=== PATIENT | female | born 1990 | race Caucasian/White ===

== ENCOUNTER 2023-10-20 08:00 | Outpatient (CLI) | payer OTHER | END 2023-10-20 23:59 | disposition home or self-care (01) | LOC: LAB.N 08:00 | PROVIDERS: ATTEND Physician Assistant Medical | DX: O23.40 Unspecified infection of urinary tract in pregnancy, unspecified trimester (principal) | CPT/HCPCS: 87086 ==

== ENCOUNTER 2023-11-21 16:23 | Outpatient (CLI) | payer OTHER ==
[2023-11-21 16:46] LABS: HGB - HEMOGLOBIN 12.4 g/dL (12.0-16.0); MEAN CORPUSCULAR HEMOGLOBIN 29.7 pg (27.0-31.0); MEAN CORPUSCULAR HGB CONC 33.5 g/dL (32.0-36.0); MEAN CORPUSCULAR VOLUME 88.7 fL (81.0-99.0); MEAN PLATELET VOLUME 10.5 fL (7.9-10.8); RED BLOOD COUNT 4.17 10^6/uL (4.20-5.40); RED CELL DISTRIBUTION WIDTH 13.3 % (12.0-15.0); WHITE BLOOD COUNT 10.8 x10^3/uL (4.8-10.8)
[2023-11-21 17:03] LABS: ALBUMIN 3.7 g/dL (3.2-5.5); ALBUMIN/GLOBULIN RATIO 1.2 (1.0-2.2); BILIRUBIN,TOTAL 0.3 mg/dL (0.2-1.0); CALCIUM 9.8 mg/dL (8.5-10.3); CREATININE 0.7 mg/dL (0.6-1.3); POTASSIUM 4.4 mmol/L (3.5-4.5); TOTAL PROTEIN 6.8 g/dL (6.4-8.9)
[2023-11-21 17:19] LABS: THYROID STIMULATING HORMONE 0.96 uIU/mL (0.34-5.60)
[2023-11-21 17:25] LABS: FERRITIN 4.9 ng/mL (11.0-306.8)
[2023-11-21 19:43] LABS: ESTIMATED AVERAGE GLUCOSE 108 mg/dL (70-100); HEMOGLOBIN A1c% 5.4 % (4.27-6.07)
== END 2023-11-21 16:24 | disposition home or self-care (01) ==
LOC: LAB 16:23
PROVIDERS: ATTEND Obstetrics & Gynecology
DX: O09.93 Supervision of high risk pregnancy, unspecified, third trimester (principal); O99.283 Endocrine, nutritional and metabolic diseases complicating pregnancy, third trimester
CPT/HCPCS: 36415; 80053; 82728; 83036; 84439; 84443; 85027

== ENCOUNTER 2023-11-21 16:28 | Outpatient (CLI) | payer OTHER ==
--- NOTE | 2023-11-21 20:56 | PROCEDURE REPORT ---
- HPI Diagnosis/Indication for NST: Decreased movement Current EDU 01/07/24 Gestation 33 Weeks and 2 Days 5 Para 1 Vital Signs Temperature 97.9 F 11/21/23 17:30 Temperature 97.9 F 11/21/23 17:30 Heart Rate Respiratory Rate Blood Pressure O2 Saturation If not protocol: Oxygen Flow, liters/minute - NST Procedure NST Procedure Start Date 11/21/23 Start Time 16:47 Stop Time 17:13 Vibroacoustic Stimulation Used No Patient States Movement decreased - Results and Plan Findings/Impression: Reactive for of 32 weeks gestation or more. NST tracing contains at least two heart rate accelerations that are at least 15 beats per minute above the baseline rate and lasting at least 15 seconds from onset to return to baseline within a twenty minute period. did feel movement during NST. very reassured. Plan: discharge home. care as scheduled.
== END 2023-11-21 17:25 | disposition home or self-care (01) ==
LOC: WFO 16:28 → FBP 16:30 → WFO 17:25
PROVIDERS: ATTEND Obstetrics & Gynecology
DX: O36.8130 Decreased fetal movements, third trimester, not applicable or unspecified (principal); O09.93 Supervision of high risk pregnancy, unspecified, third trimester; O99.283 Endocrine, nutritional and metabolic diseases complicating pregnancy, third trimester; E27.1 Primary adrenocortical insufficiency; Z3A.33 33 weeks gestation of pregnancy
CPT/HCPCS: 36415; 59025; 80053; 82728; 83036; 84439; 84443; 85027

== ENCOUNTER 2023-11-27 14:53 | Outpatient (CLI) | payer OTHER ==
[2023-11-27 16:08] LABS: THYROID STIMULATING HORMONE 0.93 uIU/mL (0.34-5.60)
== END 2023-11-27 14:54 | disposition home or self-care (01) ==
LOC: LAB 14:53
PROVIDERS: ATTEND Internal Medicine
DX: E03.9 Hypothyroidism, unspecified (principal)
CPT/HCPCS: 36415; 84439; 84443

== ENCOUNTER 2023-12-10 16:18 | Outpatient (CLI) | payer OTHER ==
--- NOTE | 2023-12-11 12:56 | Ultrasound Report ---
PROCEDURE: OB Follow up INDICATIONS: SUPERVISION OF HIGH RISK OUTSIDE/PRIOR DATING DATA: Last menstrual period (LMP): 04/02/2023. LMP-based estimated date of delivery (MACRINA): 01/07/2024. First dating scan (date and location): Not available. Estimated date of delivery (MACRINA) from first dating scan: Not available. The below data below was generated using the provider stated MACRINA of 01/07/2024 TECHNIQUE: Real-time scanning was performed of the fetus, with image documentation and biometric measurements. Endovaginal scanning: Not performed. COMPARISON: None. FINDINGS: General: A single living intrauterine gestation is present. Presentation: Breech Placenta: Placental position is posterior, without previa. Amniotic fluid index: 22.1 cm, within normal limits for gestational age. Deepest pocket is 7.4 cm. heart rate: 147 beats per minute. Maternal cervical canal: Not seen ; normal length is 2.5 cm or more. biometrics: Biparietal diameter: 8.9 cm, 36 weeks 0 days Head circumference: 34.6 cm, 40 weeks 0 days Abdominal circumference: 34.5 cm, 38 weeks 3 days Femur length: 7.3 cm, 37 weeks 2 days Estimated gestational age from clinical datin weeks 0 days Composite gestational age from present scan: 38 weeks 0 days Estimated weight and percentile: 3375 mg, 94th percentile Measurement variability in biometric dating: +/- 10 days from 12-20 weeks gestation, +/- 2 weeks from 20-30 weeks gestation, +/- 3 weeks at 30 weeks gestation or more. Other: Not applicable. IMPRESSION: Single live intrauterine is in breech presentation. Composite gestational age is 2 weeks ahead of the clinically assigned gestational age. Estimated weight at the 94th percentile. Reviewed by: Nini Dunaway MD on 12/11/2023 12:55 PM PDT Approved by: Nini Dunaway MD on 12/11/2023 12:55 PM PDT Station ID: [id number]
== END 2023-12-10 16:19 | disposition home or self-care (01) ==
LOC: DI 16:18
PROVIDERS: ATTEND Obstetrics & Gynecology
DX: O32.1XX0 Maternal care for breech presentation, not applicable or unspecified (principal); Z3A.38 38 weeks gestation of pregnancy

== ENCOUNTER 2023-12-10 16:18 | Outpatient (CLI) | payer OTHER | END 2023-12-10 16:19 | disposition home or self-care (01) | LOC: DI 16:18 | PROVIDERS: ATTEND Obstetrics & Gynecology | DX: O32.1XX0 Maternal care for breech presentation, not applicable or unspecified (principal); Z3A.38 38 weeks gestation of pregnancy ==

== ENCOUNTER 2023-12-12 08:00 | Outpatient (CLI) | payer OTHER | END 2023-12-12 23:59 | disposition home or self-care (01) | LOC: LAB.WC 08:00 | PROVIDERS: ATTEND Obstetrics & Gynecology | DX: Z36.85 Encounter for antenatal screening for Streptococcus B (principal) | CPT/HCPCS: 87797 ==

== ENCOUNTER 2023-12-19 08:00 | Outpatient (CLI) | payer OTHER ==
[2023-12-19 19:05] LABS: BILIRUBIN,URINE NEGATIVE (NEGATIVE); GLUCOSE, URINE (UA) NEGATIVE (NEGATIVE); KETONES,URINE (UA) NEGATIVE (NEGATIVE); LEUKOCYTE ESTERASE, URINE TRACE (NEGATIVE); NITRITE,URINE NEGATIVE (NEGATIVE); OCCULT BLOOD,URINE NEGATIVE (NEGATIVE); PROTEIN,URINE NEGATIVE (NEGATIVE); UROBILINOGEN,URINE 0.2 (NORMAL) E.U./dL (NORMAL)
[2023-12-19 19:12] LABS: CLARITY,URINE CLEAR (CLEAR)
[2023-12-19 19:25] LABS: RBC,URINE None Seen /HPF (0-5); SQUAMOUS EPITHELIAL CELL,UR FEW Squamous (<= Few); WBC,URINE 0-3 /HPF (0-5)
[2023-12-19 19:26] LABS: BACTERIA,URINE Rare /HPF (None Seen)
== END 2023-12-19 23:59 | disposition home or self-care (01) ==
LOC: LAB.WC 08:00
PROVIDERS: ATTEND Obstetrics & Gynecology
DX: R35.0 Frequency of micturition (principal)
CPT/HCPCS: 81001; 87086

== ENCOUNTER 2023-12-22 09:04 | Inpatient (IN) | payer OTHER ==
[2023-12-22] MEDS ORDERED: METHYLERGONOVINE 0.2 MG/ML VIAL IM PRN (09:31)
[2023-12-22] MEDS ORDERED: NIFEdipine 10 MG CAPSULE PO PRN ×3 (09:31→15:20)
[2023-12-22] MEDS ORDERED: OXYTOCIN 10 UNIT/ML VIAL IM PRN (09:31)
[2023-12-22] MEDS ORDERED: miSOPROStoL 200 MCG TABLET PR PRN (09:31)
[2023-12-22] MEDS ORDERED: TRANEXAMIC ACID IN NACL 1,000 MG/100 ML BAG IV PRN (09:31)
[2023-12-22] MEDS ORDERED: miSOPROStoL 200 MCG TABLET BC PRN (09:31)
[2023-12-22] MEDS ORDERED: hydrALAZINE INJ 20 MG/ML VIAL IVP PRN ×6 (09:31→15:20)
[2023-12-22] MEDS ORDERED: TERBUTALINE 1 MG/ML VIAL SUBQ PRN (09:31)
[2023-12-22] MEDS ORDERED: LABETALOL 20 MG/4 ML SYRINGE IVP PRN ×8 (09:31→15:20)
[2023-12-22] MEDS ORDERED: OXYTOCIN/SODIUM CHLORIDE 500 ML IV PRN ×3 (09:31→15:20)
[2023-12-22] MEDS ORDERED: SODIUM CHLORIDE FLUSH 0.9% 10 ML SYRINGE IVP PRN (09:31)
[2023-12-22] MEDS ORDERED: fentaNYL 100 MCG/2 ML VIAL IVP PRN ×2 (09:31→14:50)
[2023-12-22] MEDS ORDERED: lidocaine 1% 20 ML MDV ID PRN (09:31)
[2023-12-22] MEDS ORDERED: CARBOPROST TROMETHAMINE 250 MCG/ML VIAL IM PRN (09:31)
[2023-12-22] MEDS ORDERED: SODIUM CHLORIDE FLUSH 0.9% 10 ML SYRINGE IVP SCH (10:00)
[2023-12-22] MEDS ORDERED: LACTATED RINGERS 1,000 ML IV SCH ×2 (10:00→15:00)
[2023-12-22 10:18] LABS: BASOPHILS % (AUTO) 0.3 %; EOSINOPHILS # (AUTO) 0.1 10^3/uL (0.0-0.7); EOSINOPHILS % (AUTO) 0.6 %; HCT - HEMATOCRIT 35.2 % (37.0-47.0); HGB - HEMOGLOBIN 11.8 g/dL (12.0-16.0); LYMPHOCYTES # (AUTO) 2.9 10^3/uL (1.5-3.5); LYMPHOCYTES % (AUTO) 24.6 %; MEAN CORPUSCULAR HEMOGLOBIN 29.1 pg (27.0-31.0); MEAN CORPUSCULAR HGB CONC 33.5 g/dL (32.0-36.0); MEAN CORPUSCULAR VOLUME 86.7 fL (81.0-99.0); MEAN PLATELET VOLUME 10.5 fL (7.9-10.8); MONOCYTES # (AUTO) 0.8 10^3/uL (0.0-1.0); MONOCYTES % (AUTO) 6.8 %; NEUTROPHILS # (AUTO) 7.8 10^3/uL (1.5-6.6); NEUTROPHILS % (AUTO) 66.7 %; PLT - PLATELET COUNT 258 10^3/uL (130-450); RED BLOOD COUNT 4.06 10^6/uL (4.20-5.40); RED CELL DISTRIBUTION WIDTH 13.4 % (12.0-15.0); WHITE BLOOD COUNT 11.7 x10^3/uL (4.8-10.8)
[2023-12-22] MEDS ORDERED: ceFAZolin (2G) 2 GM in SODIUM CHLORIDE 0.9% MINIBAG 100 ML IV ONE (10:20)
[2023-12-22] MEDS ORDERED: ACETAMINOPHEN 500 MG TABLET PO ONE (10:20)
[2023-12-22] MEDS ORDERED: CITRIC ACID/SODIUM CITRATE 15 ML UDC PO ONE (10:20)
[2023-12-22] MEDS: LACTATED RINGERS 1,000 ML IV PRN (10:27)
[2023-12-22 10:31] LABS: ALBUMIN 3.6 g/dL (3.2-5.5); ALBUMIN/GLOBULIN RATIO 1.1 (1.0-2.2); BILIRUBIN,TOTAL 0.3 mg/dL (0.2-1.0); CALCIUM 9.2 mg/dL (8.5-10.3); CREATININE 0.6 mg/dL (0.6-1.3); POTASSIUM 3.9 mmol/L (3.5-4.5); TOTAL PROTEIN 6.8 g/dL (6.4-8.9)
[2023-12-22] MEDS: HYDROCORTISONE SUCCINATE 100 MG/2 ML VIAL IVP SCH ×2 (10:46→21:44)
--- NOTE | 2023-12-22 11:24 | HISTORY & PHYSICAL EXAMINATION ---
HPI - Admitted From Admitted from: OB - History Obtained From Records Reviewed: RN notes reviewed History obtained from: Patient Exam limitations: No limitations PMH/PSH - Past Medical History Cardiovascular: positive: Other (Adrenal hyperplasia, hypothyroid) Meds/Allgy - Allergies Allergies/Adverse Reactions: Allergies Allergy/AdvReac Type Severity Reaction Status Date / Time ondansetron [From Zofran] Allergy Unknown Verified 12/22/23 10:00 promethazine [From Phenergan] Allergy Unknown Verified 12/22/23 10:00 metoclopramide [From Reglan] AdvReac Anxiety Verified 12/22/23 10:00 Review of Systems - Constitutional Constitutional: reports: Fatigue - All Other Systems All Other Systems: reports: Other (+ movment. leaking fluid. no bleeding.) Exam - Vital Signs Reviewed Vital Signs: Yes Vital Signs: Vital Signs x48h Temp Pulse Resp BP 12/22/23 09:16 97.7 F 84 16 113/54 L - Physical Exam General Appearance: positive: No acute distress Respiratory: positive: No respiratory distress Cardiovascular: positive: Regular rate & rhythm Abdomen: positive: Non-tender (US done and baby is breech.) Comments/Other: NST done and baby is reactive. no decels. 2 acels per 20 min Results - Lab Results Fish Bones: 12/22/23 09:41 12/22/23 09:41 Other Lab Results: Lab Results x24hrs 12/22/23 12/22/23 12/22/23 Range/Units 09:41 09:41 09:41 WBC 11.7 H (4.8-10.8) x10^3/uL RBC 4.06 L (4.20-5.40) 10^6/uL Hgb 11.8 L (12.0-16.0) g/dL Hct 35.2 L (37.0-47.0) % MCV 86.7 (81.0-99.0) fL MCH 29.1 (27.0-31.0) pg MCHC 33.5 (32.0-36.0) g/dL RDW 13.4 (12.0-15.0) % Plt Count 258 (130-450) 10^3/uL MPV 10.5 (7.9-10.8) fL Neut # (Auto) 7.8 H (1.5-6.6) 10^3/uL Lymph # (Auto) 2.9 (1.5-3.5) 10^3/uL [place] # (Auto) 0.8 (0.0-1.0) 10^3/uL Eos # (Auto) 0.1 (0.0-0.7) 10^3/uL Baso # (Auto) 0.0 (0.0-0.1) 10^3/uL Absolute Nucleated RBC 0.00 x10^3/uL Nucleated RBC % 0.0 /100WBC Sodium 135 (135-145) mmol/L Potassium 3.9 (3.5-4.5) mmol/L Chloride 106 (101-111) mmol/L Carbon Dioxide 19 L (21-32) mmol/L Anion Gap 10.0 (6-13) BUN 13 (6-20) mg/dL Creatinine 0.6 (0.6-1.3) mg/dL Estimated GFR (MDRD) 115 (>89) Glucose 82 (74-104) mg/dL Calcium 9.2 (8.5-10.3) mg/dL Total Bilirubin 0.3 (0.2-1.0) mg/dL AST 12 (10-42) IU/L ALT 8 L (10-60) IU/L Alkaline Phosphatase 89 (42-121) IU/L Total Protein 6.8 (6.4-8.9) g/dL Albumin 3.6 (3.2-5.5) g/dL Globulin 3.2 (2.1-4.2) g/dL Albumin/Globulin Ratio 1.1 (1.0-2.2) TSH 1.58 (0.34-5.60) uIU/mL Impression/Plan - Problem List Problem List: 37+ weeks with SROM this am. baby is breech. plan primary c section today. risks benefits, alternatives discussed. consents signed. stress dose steroids 100 mg hydrocortisone given and then 50 mg q 8 for 24 hrs. azithro and ancef for prophylaxis.
[2023-12-22] MEDS: AZITHROMYCIN INJ 500 MG in SODIUM CHLORIDE 0.9% 250 ML IV ONE (11:48)
--- NOTE | 2023-12-22 12:52 | ANESTHESIA ---
Pre-Anesthesia VS, & Labs - Diagnosis breech, ruptured membranes - Procedure section Vital Signs: Temp Pulse Resp BP Pulse Ox O2 Flow Rate 36.5 C 84 16 113/54 L 12/22/23 09:16 12/22/23 09:16 12/22/23 09:16 12/22/23 09:16 Height: 5 ft 8 in Weight (kg): 110.223 kg Body Mass Index: 36.9 BMI Classification: Obese - NPO >8 hours - Is Patient ?: Yes - Lab Results Current Lab Results: Laboratory Tests 12/22/23 10:43: Blood Type Recheck AB POSITIVE 12/22/23 09:41: Blood Type AB POSITIVE, Antibody Screen NEGATIVE 12/22/23 09:41: Sodium 135, Potassium 3.9, Chloride 106, Carbon Dioxide 19 L, Anion Gap 10.0, BUN 13, Creatinine 0.6, Estimated GFR (MDRD) 115, Glucose 82, Calcium 9.2, Total Bilirubin 0.3, AST 12, ALT 8 L, Alkaline Phosphatase 89, Total Protein 6.8, Albumin 3.6, Globulin 3.2, Albumin/Globulin Ratio 1.1 12/22/23 09:41: WBC 11.7 H, RBC 4.06 L, Hgb 11.8 L, Hct 35.2 L, MCV 86.7, MCH 29.1, MCHC 33.5, RDW 13.4, Plt Count 258, MPV 10.5, Neut # (Auto) 7.8 H, Lymph # (Auto) 2.9, [place] # (Auto) 0.8, Eos # (Auto) 0.1, Baso # (Auto) 0.0, Absolute Nucleated RBC 0.00, Nucleated RBC % 0.0 12/22/23 09:41: TSH 1.58 Fish Bones: 12/22/23 09:41 12/22/23 09:41 Home Medications and Allergies Active Medications Carboprost Tromethamine (Carboprost Tromethamine 250 Mcg/Ml Vial) 250 mcg IM .ONCE PRN PRN Reason: Hemorrhage Fentanyl (Fentanyl 100 Mcg/2 Ml Vial) 50 mcg IVP Q1H PRN PRN Reason: Severe Pain (score 7-10) Hydralazine HCl (Hydralazine Inj 20 Mg/Ml Vial) 5 - 10 mg IVP Q20M PRN; Protocol PRN Reason: SBP> or= 160 OR DBP> or= 110 Hydralazine HCl (Hydralazine Inj 20 Mg/Ml Vial) 10 mg IVP .ONCE PRN; Protocol PRN Reason: SBP> or= 160 OR DBP> or= 110 Hydrocortisone Sodium Succinate (Hydrocortisone Succinate 100 Mg/2 Ml Vial) 100 mg IVP TID ANKIT Last Admin: 12/22/23 10:46 Dose: 100 mg Lactated Ringer's (Lr) 500 mls @ 999 mls/hr IV PRN PRN PRN Reason: PER PHYSICIAN ORDER Last Admin: 12/22/23 10:27 Dose: 999 mls/hr Oxytocin/Sodium Chloride (Pitocin/Sodium Chloride) 500 mls @ 999 mls/hr IV PRN PRN; Protocol PRN Reason: POST- HEMORR PREVENTION Tranexamic Acid (Tranexamic 1,000 Mg/100ml-Nacl) 1,000 mg in 100 mls @ 600 mls/hr IV Q30M PRN PRN Reason: EBL >1200mL and within 3hr Lactated Ringer's (Lr) 1,000 mls @ 125 mls/hr IV .Q8H [facility] Labetalol HCl (Labetalol 20 Mg/4 Ml Syringe) 20 - 80 mg IVP Q10M PRN; Protocol PRN Reason: SBP> or= 160 OR DBP> or= 110 Labetalol HCl (Labetalol 20 Mg/4 Ml Syringe) 20 mg IVP .ONCE PRN; Protocol PRN Reason: SBP> or= 160 OR DBP> or= 110 Labetalol HCl (Labetalol 20 Mg/4 Ml Syringe) 20 - 40 mg IVP Q10M PRN; Protocol PRN Reason: SBP> or= 160 OR DBP> or= 110 Lidocaine HCl (Lidocaine 1% 20 Ml Mdv) 20 ml ID .ONCE PRN PRN Reason: PERINEAL REPAIR Stop: 12/25/23 09:31 Methylergonovine Maleate (Methylergonovine 0.2 Mg/Ml Vial) 0.2 mg IM .ONCE PRN PRN Reason: Hemorrhage Misoprostol (Misoprostol 200 Mcg Tablet) 600 mcg BC .ONCE PRN PRN Reason: Hemorrhage Misoprostol (Misoprostol 200 Mcg Tablet) 800 mcg IN .ONCE PRN PRN Reason: Hemorrhage Nifedipine (Nifedipine 10 Mg Capsule) 10 - 20 mg PO Q20M PRN; Protocol PRN Reason: SBP> or= 160 OR DBP> or= 110 Oxytocin (Oxytocin 10 Unit/Ml Vial) 10 unit IM .ONCE PRN PRN Reason: Step One if no IV access. Sodium Chloride (Sodium Chloride Flush 0.9% 10 Ml Syringe) 10 ml IVP PRN PRN PRN Reason: NEEDED PER PROVIDER ORDERS Sodium Chloride (Sodium Chloride Flush 0.9% 10 Ml Syringe) 10 ml IVP Q8H ANKIT Terbutaline Sulfate (Terbutaline 1 Mg/Ml Vial) 0.25 mg SUBQ .ONCE PRN PRN Reason: Tachystole Allergies/Adverse Reactions: Allergies Allergy/AdvReac Type Severity Reaction Status Date / Time ondansetron [From Zofran] Allergy Unknown Verified 12/22/23 10:00 promethazine [From Phenergan] Allergy Unknown Verified 12/22/23 10:00 metoclopramide [From Reglan] AdvReac Anxiety Verified 12/22/23 10:00 Anes History & Medical History - Anesthetic History Anesthesia Complications: reports: No previous complications - Medical History 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
[2023-12-22] MEDS ORDERED: LIDOCAINE-PF 2% 10 ML AMP SUBQ ONE (13:22)
[2023-12-22] MEDS ORDERED: OXYTOCIN/SODIUM CHLORIDE 500 ML IV ONE (13:35)
[2023-12-22] MEDS ORDERED: ACETAMINOPHEN 1,000 MG/100 ML 1,000 MG/100 ML BAG IV ONE (13:35)
[2023-12-22] MEDS ORDERED: ROPIVACAINE 0.5% PF 20 ML VIAL ONE (14:02)
[2023-12-22] MEDS ORDERED: DEXAMETHASONE 4 MG/ML VIAL ONE (14:03)
[2023-12-22] MEDS: LACTATED RINGERS 1,000 ML IV ONE (14:25)
[2023-12-22] MEDS ORDERED: MORPHINE 2 MG/ML CARPUJECT IVP PRN (14:50)
[2023-12-22] MEDS ORDERED: ATROPINE ABBOJECT 1 MG/10 ML SYRINGE IVP PRN (14:50)
[2023-12-22] MEDS ORDERED: ePHEDrine 50 MG/ML VIAL IVP PRN (14:50)
[2023-12-22] MEDS ORDERED: HYDROmorphone 0.5 MG/0.5 ML SYRINGE IVP PRN (14:50)
[2023-12-22] MEDS ORDERED: NALOXONE 0.4 MG/ML VIAL IVP PRN ×3 (14:50→15:20)
[2023-12-22] MEDS ORDERED: oxyCODONE 5 MG TABLET PO PRN (14:57)
[2023-12-22] MEDS ORDERED: ACETAMINOPHEN 500 MG TABLET PO SCH (15:00)
--- NOTE | 2023-12-22 15:00 | ANESTHESIA POST OP EVALUATION ---
Anesthesia Post Eval - Post Anesthesia Eval Vitals: Last Vital Signs Temp 36.2 C L 12/22/23 14:50 Pulse 68 12/22/23 14:50 Resp 20 12/22/23 14:50 BP 93/66 12/22/23 14:50 Pulse Ox 99 12/22/23 14:50 O2 Flow Rate CV Function Including HR & BP: Stable Pain Control: Satisfactory Nausea & Vomiting: Negative Mental Status: Baseline Respiratory Status: Airway Patent Hydration Status: Satisfactory Anesthesia Complications: None
[2023-12-22] MEDS: KETOROLAC 30 MG/ML VIAL IVP SCH (16:02)
[2023-12-22] MEDS: oxyCODONE 5 MG TABLET PO PRN (16:02)
--- NOTE | 2023-12-22 16:25 | PHARMACY PROGRESS NOTE ---
- Best Possible Medication History Admit Date and Time: 12/22/23 0931 Medication History completed: Yes Patient Interview: Pt unable to participate Secondary Source(s): Pharmacy records ([facility] Insurance records As the person ultimately responsible for medication therapy, providers are able to order a medication from an existing home medication list in [facility] via the "Reconcile Routine" prior to Confirmation of that medication by account support rep. Such practice is discouraged except when the physician, in their clinical judgment, deems that a medical need exists for a medication without regard to previous use.
[2023-12-22] MEDS ORDERED: KETOROLAC 30 MG/ML VIAL IVP SCH (18:00)
[2023-12-22] MEDS ORDERED: FAMOTIDINE 20 MG TABLET PO PRN (20:51)
--- NOTE | 2023-12-22 20:57 | OPERATIVE REPORT ---
Operative Report - General Admit Date: 12/22/23 Procedure Date: 12/22/23 Planned Procedure: primary low transverse c section Pre-Op Diagnosis: Breech baby, 37 weeks, PROM Procedure Performed: primary low transverse c section Post Op Diagnosis: same, delivered - Procedure Note Primary Surgeon: Karen Jorgensen MD Secondary Surgeon: MOY Thomas Anesthesia Provider: Stephanie Francois CRNA Anesthesia Technique: Regional block (TAP block), Spinal Pathology: none IV Fluids (mL): 700 Estimated Blood Loss (mL): 350 Urine Output (mL): 150 (clear yellow) Indications: Presents with SROM as she woke up this am. Baby is still breech. 37+ weeks. Findings: live female infant weight 8lb 1.4 oz. placenta normal. uterus, tubes, ovaries normal. Complications: none - Other Other Information/Narrative: Patient signed consent forms after appropriate review of risks, benefits and alternatives of a c section. She was brought to the OR and Spinal anesthesia was placed. She had sequential compression devices on her lower extremities. Vaginal prep done and catheter placed. She received Ancef 2 gm and Azithromycin 500 mg for prophylaxis. Also she recieved 100 mg hydrocortisone for her adrenal insufficiency prior to get to the OR. She was prepped and draped in normal fashion. Time out was done. Anesthesia tested and adequate. Pfanenstiel-type insiscion was made with knife and carried thru to the underlying fascia. The was transected bilaterally. FAscia was elevated inferiorly and superiorly with Wally clamps and muscles were dissected off. Peritoneum was entered digitally and stretched. Nirav retractor was placed. Uterus was examined and low transverse incision was made with the knife. It was stretched digitally. Baby's buttocks was elevated out of the incision. legs were delivered then torso, arms and head came out easily. Baby girl was held up to mom and dad and stimulated. She was pink and crying. Cord was clamped and cut after about 2 minutes. Baby was handed off to peds team headed by Dr. Tubbs. Placenta delivered by gentle traction. uterus cleared of clots and contracted well. Oxytocin was infused in her iv. Uterine incision closed with running locked 0 Monocryl suture. 2nd horizontal imbricating layer was placed. Adnexa examined and appeared normal. Nirav removed. Fascia was closed with running 0 Vicryl stitch. Sub q space was irrigated and then closed with running 3-0 Monocryl. Skin was closed with 4-0 Monocryl in subcuticular fashion. Dermabond was placed on the skin as there was some concern that she had bad reactions to adhesives. Uterus was expressed with minimal output. it was firm. TAP block was done and then she was brought to her room on FBP in stable condition.
[2023-12-22] MEDS ORDERED: DOCUSATE SODIUM 100 MG CAPSULE PO SCH (21:00)
[2023-12-22] MEDS: DOCUSATE SODIUM 100 MG CAPSULE PO SCH (22:45)
[2023-12-22] MEDS: ENOXAPARIN 40 MG/0.4 ML SYRINGE SUBQ SCH (22:45)
[2023-12-22] MEDS: ACETAMINOPHEN 500 MG TABLET PO SCH (22:46)
[2023-12-23] MEDS: lamoTRIgine 100 MG TABLET PO SCH (01:30)
[2023-12-23] MEDS: SIMETHICONE CHEW 80 MG TABLET PO PRN (02:57)
[2023-12-23] MEDS ORDERED: fentaNYL 100 MCG/2 ML VIAL ONE (03:26)
[2023-12-23] MEDS: fentaNYL 2,500 MCG/50 ML VIAL IV SCH (03:41)
[2023-12-23] MEDS: oxyCODONE 5 MG TABLET PO PRN (04:05)
[2023-12-23 06:10] LABS: HCT - HEMATOCRIT 32.2 % (37.0-47.0); HGB - HEMOGLOBIN 10.7 g/dL (12.0-16.0); MEAN CORPUSCULAR HEMOGLOBIN 28.9 pg (27.0-31.0); MEAN CORPUSCULAR HGB CONC 33.2 g/dL (32.0-36.0); MEAN PLATELET VOLUME 10.5 fL (7.9-10.8); RED BLOOD COUNT 3.7 10^6/uL (4.20-5.40); RED CELL DISTRIBUTION WIDTH 13.6 % (12.0-15.0)
[2023-12-23 06:23] LABS: ALBUMIN 3.2 g/dL (3.2-5.5); ALBUMIN/GLOBULIN RATIO 1.4 (1.0-2.2); BILIRUBIN,TOTAL 0.3 mg/dL (0.2-1.0); CALCIUM 8.5 mg/dL (8.5-10.3); CREATININE 0.5 mg/dL (0.6-1.3); TOTAL PROTEIN 5.5 g/dL (6.4-8.9)
[2023-12-23] MEDS: LEVOTHYROXINE 25 MCG TABLET PO SCH (08:07)
[2023-12-23] MEDS: IBUPROFEN 600 MG TABLET PO SCH (10:09)
--- NOTE | 2023-12-23 14:41 | PROVIDER PROGRESS NOTE ---
Subjective - Subjective Subjective: Subjective Patient reports she is doing well. Lochia appropriate. Denies heavy bleeding. Ambulating. Pelvic and abdominal pain well-controlled. Tolerating oral intake. Diet: Regular. Voiding without difficulty. Passing flatus. Denies BM. Patient is bonding with baby in room Breast feeding going well. Denies feeling lightheaded, dizzy or excessively fatigued. Objective General: Alert, oriented, no apparent distress. Cardiovascular: Regular rate. Regular rhythm. Lungs: No increased work of breathing. Abdomen: Uterus firm. Below umbilicus. No guarding or rebound. Extremities: No pain on palpation. No cords palpated. Distal pulses intact. Incision: Clean, dry, and intact. Assessment and Plan day 1. -Routine care -Anticipate discharge tomorrow Adrenal insufficiency -Continue stress-dose steroids today, will plan to switch to twice daily dose tomorrow. -No clinical signs of issue Objective - Vital Signs/Intake & Output Vital Signs: Vital Signs x48h Temp Pulse Resp BP Pulse Ox 12/23/23 08:12 97.5 F L 60 15 107/66 97 Intake & Output: Intake & Output 12/20/23 12/21/23 12/22/23 12/23/23 23:59 23:59 23:59 23:59 Output Total 1350 1175 Balance -1350 -1175 - Lab Results Fish Bones: 12/23/23 06:05 12/23/23 06:05 Other Labs: Lab Results x24hrs 12/23/23 12/23/23 Range/Units 06:05 06:05 WBC 19.0 H (4.8-10.8) x10^3/uL RBC 3.70 L (4.20-5.40) 10^6/uL Hgb 10.7 L (12.0-16.0) g/dL Hct 32.2 L (37.0-47.0) % MCV 87.0 (81.0-99.0) fL MCH 28.9 (27.0-31.0) pg MCHC 33.2 (32.0-36.0) g/dL RDW 13.6 (12.0-15.0) % Plt Count 272 (130-450) 10^3/uL MPV 10.5 (7.9-10.8) fL Sodium 132 L (135-145) mmol/L Potassium 4.0 (3.5-4.5) mmol/L Chloride 106 (101-111) mmol/L Carbon Dioxide 20 L (21-32) mmol/L Anion Gap 6.0 (6-13) BUN 14 (6-20) mg/dL Creatinine 0.5 L (0.6-1.3) mg/dL Estimated GFR (MDRD) 142 (>89) Glucose 134 H (74-104) mg/dL Calcium 8.5 (8.5-10.3) mg/dL Total Bilirubin 0.3 (0.2-1.0) mg/dL AST 11 (10-42) IU/L ALT 9 L (10-60) IU/L Alkaline Phosphatase 73 (42-121) IU/L Total Protein 5.5 L (6.4-8.9) g/dL Albumin 3.2 (3.2-5.5) g/dL Globulin 2.3 (2.1-4.2) g/dL Albumin/Globulin Ratio 1.4 (1.0-2.2)
[2023-12-23] MEDS ORDERED: IBUPROFEN 600 MG TABLET PO SCH (18:00)
[2023-12-23] MEDS: CALCIUM CARBONATE CHEW 500 MG TABLET PO PRN (23:03)
[2023-12-24] MEDS: predniSONE 5 MG TABLET PO SCH (08:51)
[2023-12-24 09:01] VITALS: BP 108/66; O2SAT 96
--- NOTE | 2023-12-24 11:15 | DISCHARGE SUMMARY ---
Discharge Summary Admit Date: 12/22/23 Discharge Date: 12/24/23 Discharging Provider: Marcial Pugh MD Code Status: Attempt Resuscitation Condition at Discharge: Good Discharge Disposition: 01 Home, Self Care - DIAGNOSES Admission Diagnoses: Term labor Breech presentation Hickory's disease Discharge Diagnoses with Status of Each Condition: Same Status post primary low-transverse section Delivery of live hardin - HPI History of Present Illness: Subjective Patient reports she is doing well. Lochia appropriate. Denies heavy bleeding. Ambulating. Pelvic and abdominal pain well-controlled. Tolerating oral intake. Diet: Regular. Voiding without difficulty. Passing flatus. Denies BM. Patient is bonding with baby in room Breast feeding going well. Denies feeling lightheaded, dizzy or excessively fatigued. Objective General: Alert, oriented, no apparent distress. Cardiovascular: Regular rate. Regular rhythm. Lungs: No increased work of breathing. Abdomen: Uterus firm. Below umbilicus. No guarding or rebound. Extremities: No pain on palpation. No cords palpated. Distal pulses intact. Incision: Clean, dry, and intact. - HOSPITAL COURSE Hospital Course: Patient was admitted at 37 weeks gestation with rupture of membranes and pat ient. She was taken to the operating room and had a primary low-transverse section. Due to her adrenal insufficiency/Hickory's disease, she received stress dose steroids. She continued this high dose for 1 day post operative, then twice her normal dose on returning home. She was doing very well postoperatively as well as with her and was discharged on postoperative day 2 in good condition - ALLERGIES Allergies/Adverse Reactions: Allergies Allergy/AdvReac Type Severity Reaction Status Date / Time ondansetron [From Zofran] Allergy Unknown Verified 12/22/23 10:00 promethazine [From Phenergan] Allergy Unknown Verified 12/22/23 10:00 metoclopramide [From Reglan] AdvReac Anxiety Verified 12/22/23 10:00 - MEDICATIONS Home Medications: Ambulatory Orders Medication Instructions Recorded Confirmed Famotidine [Pepcid] 20 mg PO BID 12/22/23 12/22/23 Hydrocortisone [Cortef] 2 tab PO BID 12/22/23 12/22/23 Levothyroxine Sodium [Synthroid] 1 tab PO DAILY 12/22/23 12/22/23 Omeprazole 1 cap PO DAILY 12/22/23 12/22/23 lamoTRIgine [LaMICtal] 200 mg PO HS 12/22/23 12/22/23 Acetaminophen [Acetaminophen Extra 1,000 mg PO Q8H PRN #60 tablet 12/24/23 Strength] Docusate Sodium 100Mg Capsule 100 - 200 mg PO BID PRN #60 cap 12/24/23 [Colace 100Mg Capsule] Ibuprofen [Motrin] 600 mg PO Q6H PRN #30 tab 12/24/23 Simethicone [Gas Relief] 80 mg PO Q6HR PRN #30 tab 12/24/23 oxyCODONE [Roxicodone] 5 mg PO Q4H PRN #20 tablet 12/24/23 predniSONE [Prednisone] 10 mg PO BID #60 tab 12/24/23 - LABS Result Diagrams: 12/23/23 06:05 12/23/23 06:05 - FOLLOW UP Follow Up: [facility] 2 [facility] - TIME SPENT Time Spent in Discharge (Minutes): 30
--- NOTE | 2023-12-24 11:17 | Discharge Plan ---
Discharge Plan Problem Reviewed?: Yes Disposition: Home, Self Care Condition: Good Prescriptions: Acetaminophen [Acetaminophen Extra Strength] 1,000 mg PO Q8H PRN #60 tablet PRN Reason: Pain Docusate Sodium 100Mg Capsule [Colace 100Mg Capsule] 100 - 200 mg PO BID PRN #60 cap PRN Reason: Constipation Simethicone [Gas Relief] 80 mg PO Q6HR PRN #30 tab PRN Reason: Gas Ibuprofen [Motrin] 600 mg PO Q6H PRN #30 tab PRN Reason: Pain predniSONE [Prednisone] 10 mg PO BID #60 tab oxyCODONE [Roxicodone] 5 mg PO Q4H PRN #20 tablet PRN Reason: Severe Pain Activity Restrictions: Additional Comments Shower Restrictions: No Instruction Topics: Depression , C Section Dc No Smoking: If you smoke, Please STOP! Call for help. Follow-up with: Marcial Pugh MD [Provider Admit Priv/Credential] -
[2023-12-24] MEDS: predniSONE 5 MG TABLET PO STA (11:44)
--- NOTE | 2023-12-24 14:19 | Labor Flowsheet ---
Labor Flowsheet Datetime Report Generated by CPN: 12/24/2023 14:19 Datetime: 12/22/2023 17:34 VAGINAL EXAM Membranes Ruptured Date/Time: 12/22/2023 07:29 Membranes Rupture Method: Spontaneous Amniotic Fluid Color: Clear Amniotic Fluid Amount: Moderate Amniotic Fluid Odor: None Datetime: 12/22/2023 09:20 VITAL SIGNS NBP Sys/Mary/Mean (mmHg): 113 : 54 : 64 Pulse: 85
== END 2023-12-24 11:30 | disposition home or self-care (01) | DRG 787 ==
LOC: WFO 09:04 → FBP 09:06 → WFO 09:30 → FBP 09:31
PROVIDERS: ADMIT Obstetrics & Gynecology; ATTEND Obstetrics & Gynecology
PROC: 10D00Z1 Extraction of Products of Conception, Low, Open Approach (ICD-10-PCS; principal; 2023-12-22 12:30)
DX: O32.1XX0 Maternal care for breech presentation, not applicable or unspecified (principal); E27.1 Primary adrenocortical insufficiency; Z37.0 Single live birth; O99.284 Endocrine, nutritional and metabolic diseases complicating childbirth; Z3A.37 37 weeks gestation of pregnancy; O99.214 Obesity complicating childbirth; E03.9 Hypothyroidism, unspecified
CPT/HCPCS: 36415; 59025; 80053; 84443; 85025; 85027; 86850; 86900; 86901; 99215; A9270; J0131; J1650; J2795; J3010; J7120; J7512